=== PATIENT | female | born 1995 | race Caucasian/White ===

== ENCOUNTER → 2017-04-01 | Outpatient (REF) ==
[~2017-04-01] MED LIST: MOTRIN 600600 MG/TAB PO; NORCO 325 MG-51 TAB PO; PROZAC40 MG PO
== END ==
LOC: WSOH 11:15
DX: Z02.1 Encounter for pre-employment examination (principal)

== ENCOUNTER → 2017-04-14 | Outpatient (REF) | LOC: WSOH 13:14 | DX: Z01.89 Encounter for other specified special examinations (principal) ==